=== PATIENT | female | born 1975 | race Caucasian/White ===

== ENCOUNTER 2018-09-07 10:35 | Day surgery (SDC) | payer OTHER ==
[2018-09-06 16:10] LABS: BASOPHILS % (AUTO) 0.7 % (0.0-2.0); EOSINOPHILS # (AUTO) 0.2 K/uL (0.0-0.4); EOSINOPHILS % (AUTO) 3.1 % (0.0-4.0); HEMATOCRIT 38.8 % (36-48); LYMPHOCYTES # (AUTO) 2.2 K/uL (1.0-5.5); LYMPHOCYTES % (AUTO) 35.3 % (20.5-51.5); MEAN CORPUSCULAR HEMOGLOBIN 29 pg (27-31); MEAN CORPUSCULAR HGB CONC 33 % (32-36); MEAN CORPUSCULAR VOLUME 85 fL (79.0-98.0); MONOCYTES # (AUTO) 0.6 K/uL (0.0-1.0); MONOCYTES % (AUTO) 9.1 % (1.7-9.3); NEUTROPHILS # (AUTO) 3.2 K/uL (1.8-7.7); NEUTROPHILS % (AUTO) 51.8 % (40.0-70.0); PLATELET COUNT (AUTO) 261 K/uL (130-430); RED BLOOD CELL COUNT(AUTO) 4.56 MIL/uL (4.2-6.2); RED CELL DISTRIBUTION WIDTH 11.9 % (9.0-15.0); WHITE BLOOD COUNT (AUTO) 6.2 K/uL (4.8-10.8)
[2018-09-06 17:08] LABS: BILIRUBIN,URINE NEGATIVE (NEGATIVE); BLOOD, URINE NEGATIVE (NEGATIVE); COLOR,URINE YELLOW (YELLOW); GLUCOSE,URINE NEGATIVE (NEGATIVE); KETONES,URINE NEGATIVE (NEGATIVE); LEUKOCYTE ESTERASE ,URINE NEGATIVE (NEGATIVE); NITRITE, URINE NEGATIVE (NEGATIVE); PROTEIN URINE NEGATIVE (NEGATIVE); UROBILINOGEN,URINE 0.2 (0.2-1.0)
[2018-09-06 17:09] LABS: CLARITY/URINE SLIGHTLY HAZY (CLEAR)
[~2018-09-07] VITALS: Ht 167.6 cm; Wt 72.1 kg
[~2018-09-07 10:35] MED LIST: CEFAZOLIN 1 GM IVPB PREMIX 50 ML IV ONE
[2018-09-07] MEDS ORDERED: PROPOFOL 200MG/ 20ML VIAL (DIPRIVAN) IV ONE (12:20)
[2018-09-07] MEDS ORDERED: SEVOFLURANE 15 MIN GAS INH ONE (12:20)
[2018-09-07] MEDS ORDERED: DEXAMETHASONE SOD PHOSPHATE 4 MG/ML VIAL IVP ONE (12:20)
[2018-09-07] MEDS ORDERED: WATER FOR IRRIGATION,STERILE 1,000 ML IRRIG.SOLN IR ONE (12:20)
[2018-09-07] MEDS ORDERED: ROCURONIUM BROMIDE 10 MG/ML (ZEMURON) IV ONE (12:20)
[2018-09-07] MEDS ORDERED: METOCLOPRAMIDE HCL 10 MG/2 ML VIAL IVP ONE (12:20)
[2018-09-07] MEDS ORDERED: LR 1,000 ML IV.SOLN IV ONE (12:20)
[2018-09-07] MEDS ORDERED: ONDANSETRON HCL 4 MG/2 ML VIAL IVP ONE (12:20)
[2018-09-07] MEDS ORDERED: NS 1000 ML IV.SOLN IV ONE (12:20)
[2018-09-07] MEDS ORDERED: BUPIVACAINE /EPINEPHRINE/PF 0.25% 30 ML VIAL INJ ONE (12:20)
[2018-09-07] MEDS ORDERED: KETOROLAC TROMETHAMINE 30 MG VIAL IVP ONE (12:20)
[2018-09-07] MEDS ORDERED: OXYTOCIN 10 UNIT/ML VIAL IV ONE (12:20)
[2018-09-07] MEDS ORDERED: MIDAZOLAM HCL 5 MG/5 ML VIAL IVP ONE (12:20)
[2018-09-07] MEDS ORDERED: MUPIROCIN 2% TOPICAL OINTMENT 22 GM TP ONE (12:20)
[2018-09-07] MEDS ORDERED: fentaNYL CITRATE 250 MCG/5 ML AMP IV ONE (12:20)
[2018-09-07] MEDS ORDERED: MEPERIDINE HCL/PF 50 MG/ML AMP IVP PRN (13:00)
[2018-09-07] MEDS ORDERED: HYDROcodone/ACETAMIN 5-325 MG TAB (NORCO/ VICODIN) PO PRN (13:00)
[2018-09-07] MEDS ORDERED: IBUPROFEN 800 MG TABLET PO PRN (13:00)
[2018-09-07] MEDS ORDERED: LR 1,000 ML IV SCH (13:19)
[2018-09-07] MEDS ORDERED: HYDROmorphone 2 MG/ML VIAL IVP PRN ×2 (13:30)
[2018-09-07] MEDS ORDERED: MEPERIDINE HCL/PF 25 MG/ML DISP.SYRIN IVP PRN (13:30)
[2018-09-07] MEDS ORDERED: HYDROmorphone 1 MG INJ. 1 MG/ML AMPUL IVP PRN (13:30)
[2018-09-07] MEDS ORDERED: HYDROmorphone 1 MG INJ. 1 MG/ML AMPUL ONE (14:17)
[2018-09-07] MEDS: ONDANSETRON HCL 4 MG/2 ML VIAL IVP PRN ×2 (15:21→17:00)
[2018-09-07] MEDS ORDERED: ONDANSETRON HCL 4 MG/2 ML VIAL ONE ×2 (15:24→17:14)
[2018-09-07] MEDS ORDERED: HYDROcodone/ACETAMIN 5-325 MG TAB (NORCO/ VICODIN) ONE (16:44)
== END 2018-09-07 17:50 | disposition home or self-care (01) ==
LOC: SDS 10:35 → SMU 10:36 → SDS 17:50
PROVIDERS: ATTEND Specialist
DX: N81.10 Cystocele, unspecified (principal); N81.6 Rectocele; N39.3 Stress incontinence (female) (male); N81.89 Other female genital prolapse; Z90.710 Acquired absence of both cervix and uterus; Z98.890 Other specified postprocedural states; Z79.899 Other long term (current) drug therapy; E78.00 Pure hypercholesterolemia, unspecified; E78.5 Hyperlipidemia, unspecified; K21.9 Gastro-esophageal reflux disease without esophagitis
CPT/HCPCS: 36415 ×2; 57260; 81003; 84703; 85025; 86886; 86900; 86901; 88302; J0690; J1100; J1170; J1885; J2250; J2405; J2590; J2704; J2765; J3010; J3490; J7030; J7120; 88305